=== PATIENT | male | born 1990 | race African-American/Black ===

== ENCOUNTER 2021-03-31 10:57 | Emergency (ER) | payer BC ==
[2021-03-31 11:08] VITALS: BP 115/70; PULSE 99; RESP 18; TEMP 97.8
[2021-03-31] MEDS ORDERED: KETOROLAC 15 MG/ML 1 ML VIAL IVP STA (11:15)
[2021-03-31] MEDS ORDERED: SODIUM CHLORIDE 0.9% 1,000 ML IV STA (11:15)
--- NOTE | 2021-03-31 11:19 | ED ---
Abdominal Pain HPI - General Chief Complaint: Abdominal Pain Stated Complaint: abd/back pain Time Seen by Provider: 03/31/21 11:11 Source: patient, RN notes reviewed, old records reviewed Mode of arrival: ambulatory Limitations: no limitations - History of Present Illness Initial Comments: 31-year-old well-appearing black male, alert and oriented 4, presents to the emergency room with complaints of left upper abdominal pain that radiates to his back. Patient states that it started on Thursday and has been constant. He states he has had pain like this in the past and it was a kidney stone. He cannot get comfortable. He is nauseated. He denies any vomiting diarrhea or fevers. He denies daily drinking. He is smoker. MD Complaint: abdominal pain -: days(s) (2) Location: [facility] Radiation: back Severity scale (1-10): 10 Quality: sharp Consistency: constant Improves With: nothing Worsens With: nothing Context: other (History of kidney stones) Associated Symptoms: denies other symptoms - Related Data Home Medications Medication Instructions Recorded Confirmed No Known Home Medications 03/31/21 03/31/21 Allergies Allergy/AdvReac Type Severity Reaction Status Date / Time No Known Allergies Allergy Verified 03/31/21 12:03 Review of Systems ROS Statement: Those systems with pertinent positive or pertinent negative responses have been documented in the HPI. ROS Other: All systems not noted in ROS Statement are negative. Past Medical History Additional Past Medical History / Comment(s): murmur, kidney stones. History of Any Multi-Drug Resistant Organisms: None Reported Additional Past Surgical History / Comment(s): root canal Past Psychological History: No Psychological Hx Reported Smoking Status: Current every day smoker Past Alcohol Use History: None Reported Past Drug Use History: Marijuana General Exam Limitations: no limitations General appearance: alert, in no apparent distress Head exam: Present: atraumatic, normocephalic, normal inspection Eye exam: Present: normal appearance, PERRL, EOMI. Absent: scleral icterus, conjunctival injection, periorbital swelling ENT exam: Present: normal exam, normal oropharynx, mucous membranes moist Neck exam: Present: normal inspection, full ROM. Absent: tenderness, meningismus, lymphadenopathy Respiratory exam: Present: normal lung sounds bilaterally. Absent: respiratory distress, wheezes, rales, rhonchi, stridor Cardiovascular Exam: Present: regular rate, normal rhythm, normal heart sounds. Absent: systolic murmur, diastolic murmur, rubs, gallop, clicks GI/Abdominal exam: Present: soft, tenderness (Left lower), normal bowel sounds. Absent: distended, rigid Back exam: Present: normal inspection, full ROM Neurological exam: Present: alert, oriented X3, CN II-XII intact Psychiatric exam: Present: normal affect, normal mood Skin exam: Present: warm, dry, intact, normal color. Absent: rash, cyanosis, diaphoretic, petechiae, pallor Course Vital Signs 03/31/21 11:03 Temperature 97.8 F Pulse Rate 99 Respiratory 18 Rate Blood Pressure 115/70 O2 Sat by Pulse 98 Oximetry - Reevaluation(s) Reevaluation #1: 03/31/21 14:09 Patient is sleeping in room. Easily awakened states that the pain is better. No longer having nausea. Encouraged him to try to urinate before he is discharged home. Time: 14:09 Medical Decision Making - Medical Decision Making CT shows a couple of nonobstructive right renal calculi measuring up to 4 mm. There is a faint 2 mm density at the left UVJ that could represent a tiny stone at the distal ureter which is the site of the patient's pain. There is no hydronephrosis. Patient's pain is under control and he is no longer nauseated there has been no episode of vomiting in the emergency room. He has had no fevers. He'll be directed to follow up with his primary care doctor and urologist. - Lab Data Result diagrams: 03/31/21 11:54 03/31/21 11:54 Lab Results 03/31/21 03/31/21 03/31/21 Range/Units 11:54 11:54 11:54 WBC 5.4 (3.8-10.6) k/uL RBC 3.88 L (4.30-5.90) m/uL Hgb 13.1 (13.0-17.5) gm/dL Hct 37.0 L (39.0-53.0) % MCV 95.4 (80.0-100.0) fL MCH 33.6 (25.0-35.0) pg MCHC 35.3 (31.0-37.0) g/dL RDW 12.5 (11.5-15.5) % Plt Count 227 (150-450) k/uL MPV 7.4 Neutrophils % 67 % Lymphocytes % 23 % Monocytes % 6 % Eosinophils % 3 % Basophils % 0 % Neutrophils # 3.6 (1.3-7.7) k/uL Lymphocytes # 1.2 (1.0-4.8) k/uL Monocytes # 0.3 (0-1.0) k/uL Eosinophils # 0.1 (0-0.7) k/uL Basophils # 0.0 (0-0.2) k/uL Sodium 140 (137-145) mmol/L Potassium 4.0 (3.5-5.1) mmol/L Chloride 107 (98-107) mmol/L Carbon Dioxide 27 (22-30) mmol/L Anion Gap 6 mmol/L BUN 9 (9-20) mg/dL Creatinine 0.86 (0.66-1.25) mg/dL Est GFR (CKD-EPI)AfAm >90 (>60 ml/min/1.73 sqM) Est GFR (CKD-EPI)NonAf >90 (>60 ml/min/1.73 sqM) Glucose 112 H (74-99) mg/dL Plasma Lactic Acid Sravan 0.9 (0.7-2.0) mmol/L Calcium 9.0 (8.4-10.2) mg/dL Total Bilirubin 0.5 (0.2-1.3) mg/dL AST 23 (17-59) U/L ALT 14 (4-49) U/L Alkaline Phosphatase 41 (38-126) U/L Total Protein 6.3 (6.3-8.2) g/dL Albumin 3.7 (3.5-5.0) g/dL Amylase 114 H (30-110) U/L Lipase 28 (23-300) U/L Urine Color Urine Appearance (Clear) Urine pH (5.0-8.0) Ur Specific [place] (1.001-1.035) Urine Protein (Negative) Urine Glucose (UA) (Negative) Urine Ketones (Negative) Urine Blood (Negative) Urine Nitrite (Negative) Urine Bilirubin (Negative) Urine Urobilinogen (<2.0) mg/dL Ur Leukocyte Esterase (Negative) 03/31/21 Range/Units 15:20 WBC (3.8-10.6) k/uL RBC (4.30-5.90) m/uL Hgb (13.0-17.5) gm/dL Hct (39.0-53.0) % MCV (80.0-100.0) fL MCH (25.0-35.0) pg MCHC (31.0-37.0) g/dL RDW (11.5-15.5) % Plt Count (150-450) k/uL MPV Neutrophils % % Lymphocytes % % Monocytes % % Eosinophils % % Basophils % % Neutrophils # (1.3-7.7) k/uL Lymphocytes # (1.0-4.8) k/uL Monocytes # (0-1.0) k/uL Eosinophils # (0-0.7) k/uL Basophils # (0-0.2) k/uL Sodium (137-145) mmol/L Potassium (3.5-5.1) mmol/L Chloride (98-107) mmol/L Carbon Dioxide (22-30) mmol/L Anion Gap mmol/L BUN (9-20) mg/dL Creatinine (0.66-1.25) mg/dL Est GFR (CKD-EPI)AfAm (>60 ml/min/1.73 sqM) Est GFR (CKD-EPI)NonAf (>60 ml/min/1.73 sqM) Glucose (74-99) mg/dL Plasma Lactic Acid [place]rav[place] (0.7-2.0) mmol/L Calcium (8.4-10.2) mg/dL Total Bilirubin (0.2-1.3) mg/dL AST (17-59) U/L ALT (4-49) U/L Alkaline Phosphatase (38-126) U/L Total Protein (6.3-8.2) g/dL Albumin (3.5-5.0) g/dL Amylase (30-110) U/L Lipase (23-300) U/L Urine Color Yellow Urine Appearance Clear (Clear) Urine pH 6.0 (5.0-8.0) Ur Specific [place] 1.022 (1.001-1.035) Urine Protein Negative (Negative) Urine Glucose (UA) Negative (Negative) Urine Ketones Negative (Negative) Urine Blood Negative (Negative) Urine Nitrite Negative (Negative) Urine Bilirubin Negative (Negative) Urine Urobilinogen <2.0 (<2.0) mg/dL Ur Leukocyte Esterase Negative (Negative) Disposition Clinical Impression: Kidney stone Disposition: HOME SELF-CARE Condition: Good Instructions (If sedation given, give patient instructions): Kidney Stones (ED) Additional Instructions: Take Tylenol and or Motrin as needed for pain. Follow-up with your primary care doctor and urologist next week. Return if any new or worsening symptoms including increased pain, difficulty urinating or fever. Is patient prescribed a controlled substance at d/c from ED?: No Referrals: None,Stated [Primary Care Provider] - 1-2 days Time of Disposition: 15:36
--- NOTE | 2021-03-31 12:00 | CT ---
EXAMINATION TYPE: CT abdomen pelvis wo con DATE OF EXAM: 03/31/2021 COMPARISON: None HISTORY: 31-year-old male abdominal pain, Left sided anterior and flank pain CT DLP: 305.1 mGycm. Automated exposure control for dose reduction was used. TECHNIQUE: Contiguous axial scanning of the abdomen and pelvis without IV contrast. Coronal and sagit zeenta reconstructions performed. FINDINGS: Heart normal size. Lung bases clear without pleural effusion. Noncontrast appearance of the liver, gallbladder, adrenal glands, spleen, and pancreas show no gross abnormality. Exam is markedly limited due to lack of intra-abdominal fat and lack of contrast. A couple right renal calculi measuring up to 4 mm. Slight increased density in the region of the bila teral medullary pyramids suggest concentrated renal cells. No evidence of hydronephrosis. Very faint 2 mm density at the left UVJ, axial image 124 and coronal i mage 43. Sagittal image 62. No dilated small bowel, free fluid, or free air. Unable to assess for lymph nodes very well given the above-mentioned limitations. Unable to clearly identify the appendix. There are scattered moderate stool burden. Bladder partially urine distended. Prostate gland measures 4.1 cm wide. Left-sided pelvic fluid was. There is mild pelvic free fluid which is abnormal in a male patient Bones: No osseous destructive process. IMPRESSION: 1. Very limited exam due to lack of intra-abdominal fat and lack of contrast. 2. A couple nonobstructive right renal calculi measuring up to 4 mm. 3. A faint 2 mm density at the left UVJ could represent a tiny stone at the distal ureter. No hydron ephrosis to suggest a significant obstructive uropathy. Correlate with urinalysis and for any renal c olic. 4. Mild pelvic free fluid is abnormal in a male patient. Further clinical correlation and clinical s urveillance is recommended to exclude an early inflammatory process.
[2021-03-31 12:05] LABS: Basophils % (A) 0 %; Eosinophils # (A) 0.1 k/uL (0-0.7); Eosinophils % (A) 3 %; HGB 13.1 gm/dL (13.0-17.5); Lymphocytes # (A) 1.2 k/uL (1.0-4.8); Lymphocytes % (A) 23 %; MCH 33.6 pg (25.0-35.0); MCHC 35.3 g/dL (31.0-37.0); MCV 95.4 fL (80.0-100.0); Mean Platelet Volume 7.4; Monocytes # (A) 0.3 k/uL (0-1.0); Monocytes % (A) 6 %; Neutrophils # (A) 3.6 k/uL (1.3-7.7); Neutrophils % (A) 67 %; Platelet Count 227 k/uL (150-450); RBC 3.88 m/uL (4.30-5.90); RDW 12.5 % (11.5-15.5); WBC 5.4 k/uL (3.8-10.6)
[2021-03-31 12:12] LABS: ALT 14 U/L (4-49); AST 23 U/L (17-59); African American GFR (CKD) >90 (>60 ml/min/1.73 sqM); Albumin 3.7 g/dL (3.5-5.0); Alkaline Phosphatase 41 U/L (38-126); Amylase 114 U/L (30-110); Anion Gap 6 mmol/L; Blood Urea Nitrogen 9 mg/dL (9-20); Carbon Dioxide 27 mmol/L (22-30); Chloride 107 mmol/L (98-107); Glucose 112 mg/dL (74-99); Lipase 28 U/L (23-300); Non-African American GFR(CKD) >90 (>60 ml/min/1.73 sqM); Sodium 140 mmol/L (137-145); Total Bilirubin 0.5 mg/dL (0.2-1.3); Total Protein 6.3 g/dL (6.3-8.2)
[2021-03-31] MEDS ORDERED: TAMSULOSIN 0.4 MG CAP.ER.24H PO STA (14:05)
[2021-03-31] MEDS ORDERED: SODIUM CHLORIDE 0.9% 500 ML 500 ML IV ONE (15:03)
[2021-03-31 15:30] LABS: Appearance,Urine Clear (Clear); Bilirubin,Urine Negative (Negative); Blood,Urine Negative (Negative); Color,Urine Yellow; Glucose,Urine (UA) Negative (Negative); Ketones,Urine Negative (Negative); Leukocyte Esterase,Urine Negative (Negative); Nitrite,Urine Negative (Negative); Protein,Urine Negative (Negative); Specific Gravity,Urine 1.022 (1.001-1.035); Urobilinogen,Urine <2.0 mg/dL (<2.0)
== END 2021-03-31 16:29 | disposition home or self-care (01) ==
LOC: EC 10:57
DX: N20.0 Calculus of kidney (principal); F17.200 Nicotine dependence, unspecified, uncomplicated; F12.90 Cannabis use, unspecified, uncomplicated
CPT/HCPCS: 36415; 80053; 82150; 83605; 83690; 85025; 81003; 74176; 99284; 96374; 96361 ×4; J1885